=== PATIENT | female | born 1995 | race Caucasian/White ===

== ENCOUNTER → 2022-01-13 | Outpatient (CLI) | payer OTHER | LOC: DIA.ED 10:45 | DX: O24.419 Gestational diabetes mellitus in pregnancy, unspecified control (principal) | CPT/HCPCS: G0108 ==

== ENCOUNTER 2022-02-02 21:03 | Inpatient (IN) | payer OTHER ==
[~2022-02-02] VITALS: Ht 160 cm; Wt 82.7 kg
--- NOTE | 2022-02-02 21:10 | NUR ---
2109- 26 yo 39.4- Pt arrives to OB floor via w/c, accompanied by spouse. Escorted to room LDR4 and instructions given. Pt c/o LOF that she noticed around 1999. Pt reports fluid clear. +fm, +lof, +ctx, -vb 2117- EFM and toco applied. 2124- VSS. Pt appears grossly ruptured with clear fluid. Amniotrace positive. SVE /-3. 2136- Dr. Curry notified and orders rec'd. Plan of care d/w pt and spouse. 2214- up to BR 2239- Assessment completed and consents reviewed and d/w pt and family. packed explained to pt. 2244- Bedside glucose 101. 2300- #18g to lt wrist started, x1 attempt, successful. Labs drawn w/ IV start. Pt tolerated well w/o any complications. IV started by Maria Eugenia Kirkland RN 2304- up to BR 0000- Pitocin started at 2 mlu.
[2022-02-02 21:20] VITALS: TEMP 97.9
[2022-02-02 21:30] VITALS: BP 120/89; PULSE 102; TEMP 97.9
[2022-02-02] MEDS ORDERED: PRENATAL MVI (22:17)
[2022-02-02 23:00] VITALS: TEMP 97.7
[2022-02-02 23:20] LABS: BASO % 0.3 % (0.0-2.0); EOS # 0.2 K/mm3 (0.0-0.7); GRAN # 7.8 K/mm3 (1.4-6.5); GRAN % 66.4 % (42.2-75.2); HEMOGLOBIN 11.3 g/dl (12.5-16.0); LYMPH # 2.9 K/mm3 (1.2-3.4); LYMPH % 24.6 % (20.0-51.0); MEAN CELL VOLUME 81 fl (80.0-100.0); MEAN CORPUSCULAR HEMOGLOBIN 27 pg (27-31); MEAN CORPUSCULAR HGB CONC 34 g/dl (33.0-37.0); MEAN PLATELET VOLUME 11.9 fl (7.4-10.4); MONO # 0.7 K/mm3 (0.1-0.6); MONO % 6.2 % (1.7-9.3); PLATELET COUNT 241 K/mm3 (130-400); RED BLOOD COUNT 4.16 M/mm3 (4.10-5.30); REDCELL DISTRIBUTION WIDTH-CV 13.8 % (11.5-14.5)
[2022-02-02 23:25] LABS: HEMATOCRIT 33.5 % (37.0-47.0)
[2022-02-03] VITALS (53 sets, daily range): BP systolic 96–153; BP diastolic 50–99; PULSE 74–136; TEMP 97.6–98.4
--- NOTE | 2022-02-03 02:15 | NUR ---
Pt states she is feeling nauseas and getting the shakes. Difficulty tracing ctx w/ toco while pt lying on her side. [place] adjusted. Abdomen palpated moderate- firm when pt keyla
--- NOTE | 2022-02-03 03:15 | NUR ---
0237- NEHA Corrales called for epidural placement. 0308- NEHA Corrales at bs 0310- Pt sitting up on side of bed for epidural placement. 0320- Epidural catheter placed, test dose. BP 124/71 P85 SPO2 100% 0323- BP 152/77 P 86 SPO2 99% 0326- Rt tilt. BP 120/75 P106 0328- BP 138/75 P72 0330- BP 138/74 P 82 0333- BP 133/72 P 78 0335- BP 136/76 P 79 0340- BP 141/72 P 74 0345- BP 133/70 P 78 0350- BP 133/73 P 86 0400- Coleman placed w/o any issues. Clear, yellow urine noted upon insertion. Pt tolerated well. Afebrile.
--- NOTE | 2022-02-03 06:20 | NUR ---
This RN assumes care and patient resting and has no needs at this time. 0655: SVE 9-10/100/0 and patient left lateral and right leg resting in stirrup. Dr. Carvajal updated. 0740: SVE 9-10/100/0 and patient to yvon position. 0800: SVE- 10/100/0 and cohn catheter removed. 0810: Patient given pushing instructions and begins pushing with contractions. 0900: Patient continues pushing with contractions and recurrent variable decelerations noted. 0915: Dr. Carvajal at bedside assessing patients progress and FHR strip. 0920: Dr. Carvajal orders to stop pushing and repsition. Patient left lateral with right leg stirrup. Recurrent variables noted. Patient right lateral with left leg in stirrup. 0940: Variable deceleration decreasing to 60bpm. Patient wedged left.
--- NOTE | 2022-02-03 10:20 | NUR ---
FHR tracing recurrent variable declerations patient in yvon position. 1030: Patient begins to start pushing with contractions. 1100: Recurrent deep variables noted. 1105: Dr. Carvajal at bedside and assessing progress. 1112: Physician straight catherizes patient. Patient continues to push with each contraction. 1135: Patient set up for vaginal delivery. Recurrent deep variables continue. Dr. Carvajal continues to push with patient. 1142: Dr. Carvajal discusses the need for vacuum assisted delivery and informs patient on the risks. Patient agrees with plan. 1147: Vacuum applied to head and traction applied with two pushes. 1149: Traction applied with pushes and pop offx1. 1150: Vacuum applied. 1151: Traction applied with each push. 1153: Traction applied and pop off x1. Patient continues to push with contractions. 1157: Vacuum applied and traction with each push. 1159: Physician cuts median epis. 1201: Vacuum assisted vaginal delivery of viable male-head followed by body. Infant to patients abdomen and D. Kian RN assumes care of infant. Cord clamped x2 by physician and cut by FOB. Cord blood obtained. Rosalinda TORRES obtains cord gases. 1207: Spontaneous delivery of placenta and pitocin bolus started per protocol. Physician repairs laceration. Fundal massage done, firm, bleeding WNL. Patient repositioned, ice pack to perineum, plan of care discussed.
--- NOTE | 2022-02-03 15:30 | NUR ---
Patient sitting up on edge of bed, epidural catheter removed and intact, patient assisted to wheel chair. Patient assisted onto toilet and void, pericare done/new gown, ice pack, underwear on. Patient assiste to bed and oriented to new room.
[2022-02-04 03:40] VITALS: BP 116/65; PULSE 79; TEMP 97.7
[2022-02-04] MEDS ORDERED: IBU800 M1 PO (07:31)
[2022-02-04 08:07] VITALS: BP 109/56; PULSE 68; TEMP 97.2
--- NOTE | 2022-02-04 09:09 | NUR ---
Initial visit; Parents thanked [employer] for offering congratulations and God's blessings for the of their son. [employer] thanked family for choosing [facility].
[2022-02-04 12:15] VITALS: BP 109/73; PULSE 80; TEMP 97.6
[2022-02-04 19:08] VITALS: BP 112/60; PULSE 81; TEMP 97.7
--- NOTE | 2022-02-05 01:07 | NUR ---
PT STATED SHE PEED ON FLOOR SHE WAS HEADED TO BATHROOM, 'IT JUST KIND OF CAME OUT'. REASSURED PT, PT WENT TO BATHROOM, CLEANED UP CLEAR URINE FROM FLOOR. EDUCATED PT ON PELVIC FLOOR EXERCISES AND URINARY CHANGES . PT VERBALIZED UNDERSTANDING. NO FURTHER QUESTIONS AT THIS TIME. CALL LIGHT WITHIN REACH.
[2022-02-05 08:40] VITALS: BP 116/64; PULSE 86; TEMP 97.9
== END 2022-02-05 12:35 | disposition home or self-care (01) | DRG 806 ==
LOC: LDRO 21:03 → LDR 21:45 → OB 02-03 15:40
PROVIDERS: ADMIT Obstetrics & Gynecology
PROC: 10D07Z6 Extraction of Products of Conception, Vacuum, Via Natural or Artificial Opening (ICD-10-PCS; principal; 2022-02-03)
PROC: 0W8NXZZ Division of Female Perineum, External Approach (ICD-10-PCS; 2022-02-03)
PROC: 0UQGXZZ Repair Vagina, External Approach (ICD-10-PCS; 2022-02-03)
DX: O24.429 Gestational diabetes mellitus in childbirth, unspecified control (principal); O71.4 Obstetric high vaginal laceration alone; Z37.0 Single live birth; O76 Abnormality in fetal heart rate and rhythm complicating labor and delivery; O75.81 Maternal exhaustion complicating labor and delivery; O69.1XX0 Labor and delivery complicated by cord around neck, with compression, not applicable or unspecified; Z3A.39 39 weeks gestation of pregnancy
CPT/HCPCS: J0595; J2405; J2590; J7120